=== PATIENT | male | born 1990 | race African-American/Black ===

== ENCOUNTER 2025-09-05 10:23 | Emergency (ER) | payer MEDICARE, SELFPAY ==
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
[2025-09-05 10:28] VITALS: BP 175/104; PULSE 77; RESP 17; TEMP 36.8; O2SAT 98; BMI 24.5
--- NOTE | 2025-09-05 10:36 | PC.NURSE ---
pt self catheterized himself w/ personal supplies in [facility] bathroom - urine specimen obtained/sent to lab.
--- OUTSIDE RECORDS SUMMARY | 2025-09-05 10:53 | XMS_ITS | Clinical Summary ---
Author Organization [employer] ([facility] 06/15/2024) ([employer] [place]) Address [address] [place] [address] Care Team Providers Care Metal Cabinet Finisher Name Role Phone None, None Primary Care Provider Unavailabl e Allergies Active Allergy Reactions Criticality Noted Date Comments Fish Allergy Hives High 01/31/2017 Iodine Nausea and/or vomiting,Short of Breath/Wheezing High 08/08/2017 Seafood Allergy Hives High 04/13/2023 Shellfish-Derived Products Hives High 3 Medications valACYclovir (VALTREX) 1 g PO Tab TAKE 1 TABLET BY MOUTH EVERY 12 HOURS FOR 10 DAYS 04/04/2023 Active HYDROcodone-acet aminophen ([place]) 7.5-325 MG PO Tab take 1 Tablet by mouth every 6 hours as needed for FOR PAIN. 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 Family History Medical History Relation Name Comments Hypertension Mother Malignant Hyperthermia Neg Hx Pseudocholinesterase Deficiency Neg Hx Relation Name Status Comments Father Mother Alive Son Other Social History Tobacco Use Types Packs/Day Years Used Date Smoking Tobacco: Never Passive Smoke Exposure: Never Tobacco Cessation:Counseling Given: Yes Alcohol Use Standard Drinks/Week Comments No 0 (1 standard drink = 0.6 oz pur e alcohol) PHQ-2 Answer Date Recorded Patient Health Questionnaire-2 Score 0 02/28/2024 Sex and Gender Information Value Date Recorded Sex Assigned at Not on file Legal Sex Male 3:31 PM EST Gender Identity Not on file Sexual Orientation Not on file Occupation Industry Job Start Date Job End Date unemployed Not on file Not on file Not on file Last Filed Vital Signs Vital Sign Reading Time Taken Comments Blood Pressure 149/100 04/28/2024 8:54 AM EDT Pulse 71 04/28/2024 8:54 AM EDT Temperature 36.6 C (97.9 F) 04/28/2024 8:54 AM EDT Respiratory Rate 16 04/28/2024 8:54 AM EDT Oxygen Saturation 96% 04/28/2024 8:54 AM EDT Inhaled Oxygen Concentration - - Weight 83.9 kg (185 lb) 04/28/2024 9:22 AM EDT Height 182.9 cm (6') 04/28/2024 9:22 AM EDT Body Mass Index 25.09 04/28/2024 9:22 AM EDT Plan of Treatment Health Maintenance Due Date Last Done Comments SCREENING: HEPATITIS C 1990 VACCINE: HEPATITIS B (3 of 3 - 3-dose series) 06/03/1997 04/08/1997, 02/11/1997 VACCINE: TETANUS,DIPHTHERIA BOOSTER (TD BOOSTER) EVERY 10 YEARS 2009 VACCINE: TETANUS,DIPHTHERIA,PERTUSSIS (TDAP) FIRST DOSE ADULT 2009 HEALTH MAINTENANCE EXAM (ADULT) 05/05/2016 05/05/2015, 01/06/2015 Vaccines: HPV (1 - 3-dose SCDM series) 2017 SCREENING: DEPRESSION 02/27/2025 02/28/2024 VACCINE: INFLUENZA (#1) 2025 02/19/20 24, 02/21/2023, 10/31/2022, Additional history exists VACCINE: COVID-19 ( season) 2025 03/31/2023, 02/21/2023 Vaccines: IPV Completed 04/22/1996, 11/26, 08/30/1995 SCREENING:HIV Completed 04/28/2014 Pneumococcal Vaccine: Pediatrics (0 to 5 Years) and At-Risk Patients (6 to 64 Years) Aged Out 02/19/2024, 02/21/2023 No longer eligibl e based on patient's age to complete this topic VACCINE: HEPATITIS A Aged Out No long er eligible based on patient's age to complete this topic Vaccines: HIB Aged Out No longer elig ible based on patient's age to complete this topic Vaccines: Meningococcal B Aged Out No longer eligible based on patient's age to complete this topic Vaccines: Meningococcal Aged Out No l onger eligible based on patient's age to complete this topic Vaccines: Rotavirus Aged Out No longe r eligible based on patient's age to complete this topic Medical Devices Implanted Type Area Outreach Analyst Device Identifier Shelf Expiration Date Model / Serial / Lot Kit,Mri Lead,Interstim Surescan , 28cm, [id number] Implanted:Qty: 1 on 04/06/2023 by Emre Sylvester MD at [facility] N/A: Back [employer] 06/18/2024 [id number] / / [id number] Neurostimulator ,Interstim X, [id number] Implanted:Qty: 1 on 04/20/2023 by Emre Sylvester MD at [facility] N/A: Back [employer] 07/23/2024 [id number] / [id number] / Envelope,Medium ,Absorbable Antibacterial, [id number] Implanted:Qty: 1 on 04/20/2023 by Emre Sylvester MD at [facility] 09/15/2023 [id number] / / Care Teams Metal Cabinet Finisher Relationship Specialty Start Date End Date None, None PCP - General 03/13/24
--- OUTSIDE RECORDS SUMMARY | 2025-09-05 10:53 | XMS_ITS | Referral Summary ---
Author Organization [facility] ([facility] 06/15/2024) ([facility] [place]) Address [address] [place] [address] Care Team Providers Care Forestry Supervisor Name Role Phone None, None Primary Care Provider Unavailabl e Allergies Active Allergy Reactions Criticality Noted Date Comments Fish Allergy Hives High 01/31/2017 Iodine Nausea and/or vomiting,Short of Breath/Wheezing High 08/08/2017 Seafood Allergy Hives High 04/13/2023 Shellfish-Derived Products Hives High 3 Medications valACYclovir (VALTREX) 1 g PO Tab TAKE 1 TABLET BY MOUTH EVERY 12 HOURS FOR 10 DAYS 04/04/2023 Active HYDROcodone-acet aminophen ([place]) 7.5-325 MG PO Tab take 1 Tablet by mouth every 6 hours as needed for FOR PAIN. 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 Social History Tobacco Use Types Packs/Day Years [...] 04/28/2024 9:22 AM EDT Plan of Treatment Not on file Medical Devices Implanted Type Area Damage Prevention Coordinator Device Identifier Shelf Expiration Date Model / Serial / Lot Kit,Mri Lead,Interstim Surescan , 28cm, [id number] Implanted:Qty: 1 on 04/06/2023 by Emre Sylvester MD at [facility] N/A: Back [employer] 06/18/2024 [id number] / / [id number] Neurostimulator ,Interstim X, [id number] Implanted:Qty: 1 on 04/20/2023 by Emre Sylvester MD at [facility] N/A: Back [employer] 07/23/2024 [id number] / [id number] / Envelope,Medium ,Absorbable Antibacterial, [id number] Implanted:Qty: 1 on 04/20/2023 by Emre Sylvester MD at [facility] 09/15/2023 [id number] / / Care Teams Forestry Supervisor Relationship Specialty Start Date End Date None, None PCP - General 03/13/24
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
--- OUTSIDE RECORDS SUMMARY | 2025-09-05 10:53 | XMS_ITS | Encounter Summary ---
Author Organization [facility] Address [address] [place] [address] Care Team Providers Care Professional Benefits Sales Consultant Name Role Phone Eliecer Krause MD Unavailable [phone] Darell Stephens MD Primary Care Provider [phone] Encounter Details Date Type Department Care Team (Late st Contact Info) Description 02/14/2023 Scanned Document [facility] Information Management - [facility] [address] [place] [address] Ordering, Generic Social History Tobacco Use Types Packs/Day Years Used Date Smoking Tobacco: Never Smokeless Tobacco: Never Alcohol Use Standard Drinks/Week Comments No 0 (1 standard drink = 0.6 oz pur e alcohol) Safety Answer Date Recorded Are you afraid you might be hurt in your living environment? No 02/12/2023 Sex and Gender Information Value Date Recorded Sex Assigned at Not on file Legal Sex Male 10:33 AM EDT Gender Identity Not on file Sexual Orientation Not on file documented as of this encounter Plan of Treatment Not on file documented as of this encounter Visit Diagnoses Not on filedocumented in this encounter Care Teams Professional Benefits Sales Consultant Relationship Specialty Start Date End Date Darell Stephens MD [address] [address] PCP - General Family Medicine 03/23/25 [place] [address] [facility] [address] [place] [address] Consulting Physician Otolaryngology 05/06/24 documented as of this encounter
--- OUTSIDE RECORDS SUMMARY | 2025-09-05 10:54 | XMS_ITS | Encounter Summary ---
Author Organization [facility] Address [address] [place] [address] Care Team Providers Care Chair Finisher Name Role Phone Phuc Fong MD Unavailable Eliecer Krause MD Unavailable [phone] Darell Stephens MD Primary Care Provider [phone] Encounter Details Date Type Department Care Team (Late st Contact Info) Description 03/22/2019 Scanned Document [facility] Gerardo Singh MD Social History Tobacco Use Types Packs/Day Years Used Date Smoking Tobacco: Every Day Cigarettes 0.1 4 Smokeless Tobacco: Never Alcohol Use Standard Drinks/Week Comments No 0 (1 standard drink = 0.6 oz pur e alcohol) Sex and Gender Information Value Date Recorded Sex Assigned at Not on file Legal Sex Male 10:33 AM EDT Gender Identity Not on file Sexual Orientation Not on file documented as of this encounter Miscellaneous Notes * Significant Event - Gerardo Singh MD - 03/22/2019 12:00 AM EDT System Downtime Recovery The EHR experienced a system downtime on March 22, 2019 between 12:30am and 4:00am. During this downtime paper charting may have been completed. Please refer to the paper record or scanned documents. documented in this encounter Plan of Treatment Not on file documented as of this encounter Visit Diagnoses Not on filedocumented in this encounter Care Teams Chair Finisher Relationship Specialty Start Date End Date Darell Stephens MD [address] [place] [address] PCP - General Family Medicine 03/23/25 [place] [address] [place] [address] Family Medicine 11/13/17 01/29/23 [place] [address] [facility] [address] [place] [address] Consulting Physician Otolaryngology 05/06/24 documented as of this encounter
--- OUTSIDE RECORDS SUMMARY | 2025-09-05 10:54 | XMS_ITS | Clinical Summary ---
Author Organization [facility] Address [facility] [address] [place] [address] Phone Care Team Providers Care Golf Ball Molder Name Role Phone Pcp, Unknown Primary Care Provider Unavailabl e Allergies No known active allergies Medications No known medications Encounters Date Type Department Care Team Description 08/10/2025 Telephone [facility], Department of Neurology [address] [place] [address] Adore Talavera PA-C 08/11/2025 Appoitment canceled from Last 3 Months Social History Tobacco Use Types Packs/Day Years Used Date Smoking Tobacco: Never Tobacco Cessation:Counseling Given: Not Answered Education Answer Date Recorded Are you interested in more education? Not on dusty e 11/09/2023 Are you concerned about learning? Not on file 11/09/2023 No 11/09/2023 No 11/09/2023 Digital Access Answer Date Recorded No 11/09/2023 No 11/09/2023 Reliable internet access at home? Not on file 11/09/2023 Device with a working camera? Not on file Intimate Partner Violence Answer Date R ecorded Denied Basic Needs Not on file 03/18/2024 In the past 12 months have y ou been in a relationship with a person who hurts, threatens, or tries to control you? No 03/18/2024 Worried food would run out Not on file 03/18 In the past 12 months have y ou been in a relationship with a person who hurts, threatens, or tries to control you? No 03/18/2024 Sex and Gender Information Value Date Recorded Sex Assigned at Male 09/25/2023 3:54 PM EDT Legal Sex Male 3:51 PM EDT Gender Identity Male 09/25/2023 3:54 PM EDT Sexual Orientation Straight 09/25/2023 3: 54 PM EDT Last Filed Vital Signs Vital Sign Reading Time Taken Comments Blood Pressure 146/80 03/18/2024 11:12 AM EDT Pulse 62 03/18/2024 11:12 AM EDT Temperature 36.4 C (97.6 F) 03/18/2024 11:12 AM EDT Respiratory Rate 18 03/18/2024 11:21 AM EDT Oxygen Saturation 96% 03/18/2024 11:12 AM EDT Inhaled Oxygen Concentration - - Weight 88 kg (194 lb) 11/30/2023 8:28 AM EST Height 185.4 cm (6' 1 ) 11/30/2023 8:28 AM EST Body Mass Index 25.6 11/30/2023 8:28 AM EST Plan of Treatment Upcoming Encounters Date Type Department Care Team (Late st Contact Info) Description 11/26/2049 Procedure Pass [facility] PERIOPERATIVE DEPT [address] [place] [address] Health Maintenance Due Date Last Done Comments Adult Td,Tdap Booster 1990 DEPRESSION SCREENING 2002 HEPATITIS C SCREENING 2008 HIV ONE-TIME SCREENING (18-6 5 YEARS) 2008 SMOKING STATUS SCREENING (On ce After 26 Yrs) 2016 LIPID PANEL 03/14/2024 03/14/2019 SCREENING FOR DIABETES 2025 INFLUENZA VACCINE (#1) 2025 COVID-19 VACCINE ( - 2024-2 6 season) 2025 HEPATITIS A VACCINES Aged Out No long er eligible based on patient's age to complete this topic HIB VACCINES Aged Out No longer eligi ble based on patient's age to complete this topic MENINGOCOCCAL VACCINES (ACWY) Aged Out No longer eligible based on patient's age to complete this topic MENINGOCOCCAL VACCINES (B) Aged Out N o longer eligible based on patient's age to complete this topic PNEUMOCOCCAL VACCINES (0-49 years) Aged Out No longer eligible based on patient's age to complete this topic Medical Devices Not on file Insurance MEDICARE PART A & B MEDICARE PART A & B MEDICARE PART A & B MEDICARE PART A & B MEDICARE PART A & B MEDICARE PART A & B Care Teams Golf Ball Molder Relationship Specialty Start Date End Date Pcp, Unknown PCP - General 09/25/23 Additional Source Comments The information contained in this document represents components of the legal health record. It is not the complete legal health record.[facility]
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
--- OUTSIDE RECORDS SUMMARY | 2025-09-05 10:54 | XMS_ITS | Patient Health Record ---
Author Organization [facility] Address [address] [place] [address] Care Team Providers Care Vice President Business Development Name Role Phone MARIA LUISA CASTRO Unavailable [phone] Reason For Referral No Information Plan Of Treatment No Information Insurance Providers Payer Name Payer Address Payer Phone Subscriber Number Group Number Insured Name Patient Relationship to Insured Coverage Start Date Coverage End Date [place] [address] [place] [address] [id number] GRUPO Hameed Self - patient is the insured [place] [address] [address] [place] [address] [phone] [id number] GRUPO Hameed Self - patient is the insured
--- OUTSIDE RECORDS SUMMARY | 2025-09-05 10:54 | XMS_ITS | Clinical Summary ---
Author Organization [facility] Address [address] [place] [address] Phone Care Team Providers Care Prepared Foods Supervisor Name Role Phone Pcp, None Primary Care Provider Unavailabl e Social History Tobacco Use Types Packs/Day Years Used Date Smoking Tobacco: Never Assessed Sex and Gender Information Value Date Recorded Sex Assigned at Not on file Gender Identity Not on file Sexual Orientation Not on file Plan of Treatment Not on file Care Teams Prepared Foods Supervisor Relationship Specialty Start Date End Date Pcp, MD Trudy PCP - General 12/17/23
--- OUTSIDE RECORDS SUMMARY | 2025-09-05 10:54 | XMS_ITS | Encounter Summary ---
Author Organization [facility] stem Address [address] [place] [address] Care Team Providers Care Fire Control Mechanic Name Role Phone Phuc Fong MD Primary Care Provider Phuc Fong MD Unavailable [phone] Eliecer Krause MD Unavailable [phone] Darell Stephens MD Primary Care Provider [phone] Encounter Details Date Type Department Care Team (Late st Contact Info) Description 02/29/2016 Scanned Document [facility] Information Management - [facility] [address] [place] [address] Ordering, Generic Social History Tobacco Use Types Packs/Day Years Used Date Smoking Tobacco: Never Alcohol Use Standard Drinks/Week Comments [...] on filedocumented in this encounter Care Teams Fire Control Mechanic Relationship Specialty [place] [address] [place] [address] PCP - General Family Medicine 02/08/16 11/12/17 Darell Stephens MD [address] [place] [address] PCP - General Family Medicine 03/23/25 [place] [address] [place] [address] Family Medicine 11/13/17 01/29/23 [place] [address] [facility] [address] [place] [address] Consulting Physician Otolaryngology 05/06/24 documented as of this encounter
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
[2025-09-05 11:01] LABS: Appearance Urine Cloudy; Glucose Urine UA Negative (Negative); PH 5.5 (5.0-9.0); Specific Gravity - Urine 1.020 (1.005-1.025); UMIC TRIGGER UACC YES
[2025-09-05 11:08] LABS: UACC Culture Trigger YES
[2025-09-05 11:09] VITALS: BP 175/104; PULSE 77; RESP 17; TEMP 36.8; O2SAT 98
--- NOTE | 2025-09-05 11:18 | ED_ITS ---
HPI - Male Genitourinary General Chief complaint: Urogenital-Male Stated complaint: bladder issues Time Seen by Provider: 09/05/25 11:12 Source: patient Mode of arrival: ambulatory Limitations: no limitations History of Present Illness ED Provider: DR. Ware HPI Narrative: This is a 35-year-old male with history of neurogenic bladder and use self catheterization for the past 8 years patient is out of town and ran out of straight catheter. Patient is prone to UTI No fever, no chills, no urethral discharge, no risk for STDs. No abdominal pain, no nausea, no vomiting. Related Data Previous Rx's ?Medication ?Instructions ?Recorded catheter 12 Fr #10 ea 09/05/25 sulfamethoxazole 800 1 tab PO BID #14 tabs mg-trimethoprim 160 mg tablet (Bactrim DS) Allergies Allergy/AdvReac Type Severity Reaction Status Date / Time No Known Allergies Allergy Verified 09/05/25 10:30 Review of Systems Review of Systems: All other systems are reviewed and are negative Constitutional: Reports as per HPI and Reports no additional constitutional complaints Eyes: Reports as per HPI and Reports no additional eye complaints Reports system reviewed and no additional complaints, except as documented Cardiovascular: Reports as per HPI and Reports no additional cardiovascular complaints Respiratory: Reports as per HPI and Reports no additional respiratory complaints Gastrointestinal: Reports as per HPI and Reports no additional gastrointestinal complaints Genitourinary: Reports no additional female genitourinary complaints Musculoskeletal: Reports no additional musculoskeletal complaints Skin/Breast: Reports system reviewed and no additional complaints, except as docu Psychiatric: Reports no additional psychiatric complaints Endocrine: Reports no additional endocrine complaints Hematologic/Lymphatic: Reports no additional hematologic/lymphatic complaints Allergic/Immunologic: Reports no additional allergic/immunologic complaints Reports system reviewed and no additional complaints, except as documented and Reports Abnormal speech present [facility] Social History Social History Smoked in Last 30 Days: No Use of substances other than those prescribed or required for medical reasons: No Advance Directives: No Advance Directives Information Provided: No Do you have a plan to hurt others: No Plan Physical Exam Vital Signs: Vital Signs: Last Vital Signs Temp 98.3 F 09/05/25 11:09 Pulse 77 09/05/25 11:09 Resp 17 09/05/25 11:09 BP 175/104 H 09/05/25 11:09 Pulse Ox 98 09/05/25 11:09 O2 Del Method Room Air 09/05/25 11:09 BMI result Body Mass Index 24.5 Vital signs have been reviewed and appear to be correct. Blood pressure elevated. Heart rate normal. Respiratory rate normal. Temperature normal. Oxygen saturation normal. Appearance: Alert. Oriented X3. No acute distress. Head: Normal external exam. Normocephalic. Atraumatic. No Soto signs noted. No raccoon eyes noted Eyes: PERRLA. EOMI. Conjunctiva and sclera normal. Eyelids normal. ENT: TM's Normal. Pharynx normal. Uvula midline. Moist mucous membranes. No trismus noted. No drooling noted. No muffled voice noted. Neck: Normal inspection. Neck supple. FROM. No adenopathy. Thyroid Normal. No meningeal signs. No neck mass noted. CVS: Normal heart rate and rhythm. Heart sound normal. No murmurs noted. Pulses normal throughout. Respiratory: No respiratory distress. Painless inspiration. Breath sounds normal. No wheezes/rales/rhonchi noted. Chest nontender. No accessory muscle usage noted or decreased air movement noted. Abdomen: Soft and nontender. Bowel sounds normal in all 4 quadrants. No distention noted. No organomegaly noted. No visible injury noted. Back: No CVA tenderness. Full range of motion noted. Skin: Skin warm and dry. Normal skin color. Normal skin turgor. No rashes/lesions/lacerations noted. Extremities: No lower extremity edema. Extremities exhibit normal range of motion. Extremities nontender. Neuro: Oriented X 3. Cranial nerve exam: II-XII are grossly intact No motor deficit. No sensory deficit. Reflexes normal. Course Reevaluation(s) Reevaluation #1: 35-year-old male with history of neurogenic bladder and recurrent UTI presented for evaluation of UTI and patient need a prescription for self catheterization Patient is requesting Bactrim because that is the most effective antibiotic by history Cipro does not work for the patient. Time: 11:21 Medications Administered Discontinued Medications Generic Name Dose Route Start Last Admin Trade Name Freq PRN Reason Stop Dose Admin Levofloxacin 750 mg 09/05/25 11:17 09/05/25 11:53 Levofloxacin 750 Mg Tablet PO 09/05/25 11:18 750 mg ONCE ONE Administration Medical Decision Making Differential Diagnosis Differential Diagnoses: The differential diagnosis associated with the presentation includes (UTI, STD.) Admission/Observation Consideration of admission/observation: Escalation of care including admission/observation considered Lab Data MDM Lab Attestation statement: I reviewed the patient's lab results. Labs: Lab Results 09/05/25 Range/Units 10:33 Urine Color Yellow Urine Appearance Cloudy Urine pH 5.5 (5.0-9.0) Ur Specific [place] 1.020 (1.005-1.025) Urine Protein Trace (Neg-Trace) mg/dL Urine Glucose (UA) Negative (Negative) mg/dL Urine Ketones Negative (Negative) mg/dL Urine Blood Negative (Negative) Urine Nitrite Positive H (Negative) Ur Leukocyte Esterase Large (3+) H (Negative) Urine RBC 0-2 (0-2) /HPF Urine WBC >50 H (0-5) /HPF Ur Squamous Epith Cells 0-2 (0-2) /HPF Urine Bacteria 4+ (None Seen) Hyaline Casts 0-2 (0-2) /LPF Discharge Plan Discharge Clinical Impression: Urinary tract infection, Neurogenic bladder Patient Disposition: Home, Self-Care Instructions: Urinary Tract Infection in Men (ED) Additional Instructions: Use strict sterilized instructions to replace your straight catheter. Plenty of fluids. Prescriptions: New (DME) catheter 12 Fr misc See Rx Instructions .Route Qty: 10 0RF Rx Instructions: As directed sulfamethoxazole-trimethoprim [Bactrim DS] 800-160 mg tablet 1 tab PO BID Qty: 14 0RF Print Language: Welsh
[2025-09-05 12:10] VITALS: BP 154/76; PULSE 74; RESP 16; TEMP 36.8; O2SAT 98
== END 2025-09-05 12:11 | disposition home or self-care (01) ==
PROVIDERS: Emergency Provider Emergency Medicine
DX: N39.0 Urinary tract infection, site not specified (principal); N31.9 Neuromuscular dysfunction of bladder, unspecified
CPT/HCPCS: 81001; 87086; 87088; 87186; 99283; 99284